=== PATIENT | female | born 1950 ===

== ENCOUNTER 2017-08-29 08:52 | Outpatient (CLI) | payer OTHER ==
[~2017-08-29 08:52] MED LIST: BACLOFEN10 MG; DOXYCYCLINE HY100 MG PO; NEURONTIN800 MG; OXYBUTYNIN5 MG/BOTTL; SIMVASTATIN5 MG; XANAX0.25 MG; ZOLOFT25 MG
== END 2017-08-29 09:03 | disposition home or self-care (01) ==
LOC: LAB 08:52
DX: J43.2 Centrilobular emphysema (principal); A31.0 Pulmonary mycobacterial infection

== ENCOUNTER → 2017-09-08 09:04 | Outpatient (CLI) | payer OTHER | END | disposition home or self-care (01) | LOC: LAB 09:04 | DX: A31.0 Pulmonary mycobacterial infection (principal); J43.2 Centrilobular emphysema ==

== ENCOUNTER 2017-12-30 13:09 | Outpatient (CLI) | payer OTHER | END 2017-12-30 14:00 | disposition home or self-care (01) | LOC: NUCLEAR 13:09 | DX: L89.159 Pressure ulcer of sacral region, unspecified stage (principal) | CPT/HCPCS: 78802; A9556 ==

== ENCOUNTER 2020-05-26 15:34 | Outpatient (CLI) | payer OTHER | END 2020-05-26 18:00 | disposition home or self-care (01) | LOC: LAB 15:34 | DX: N20.0 Calculus of kidney (principal) ==